=== PATIENT | male | born 1965 | race Caucasian/White ===

== ENCOUNTER 2019-11-05 12:41 | Outpatient (CLI) | payer BC, SELFPAY ==
[2019-11-08 15:54] LABS: COVID-19 RT-PCR UVMMC Result Negative (Negative)
== END 2019-11-05 13:01 ==
PROVIDERS: PCP Physician Assistant; Visit Provider Urology
DX: Z11.59 Encounter for screening for other viral diseases (principal)
CPT/HCPCS: U0003

== ENCOUNTER 2019-11-09 06:13 | Day surgery (SDC) | payer BC, SELFPAY ==
[2019-11-09 06:22] VITALS: BP 108/72; PULSE 90; RESP 16; TEMP 36.9; O2SAT 97
--- NOTE | 2019-11-09 06:49 | W.PM.HP.N ---
Date of service: 11/09/19 Time of Service: 07:00 Assessment and Plan Assessment and plan (1) Bilateral kidney stones: Status: Acute Assessment and plan: We will plan on cystoscopy with bilateral retrograde pyelograms, ureteroscopy and stone manipulation. Depending on the size and location of the stones, we will be prepared to use either the semirigid or flexible ureteroscope. We will have the holmium laser available should we need it. On his last imaging study, his stones were in the upper pole of each kidney. 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 He underwent ureteroscopy for a ureteral stone back in 2016. He has passed a few stones since then. He has been alkalinizing his urine as well. He tells me that about 2 months ago he passed a small stone. He felt well after that, but for the past week or so he has noticed urinary frequency, urgency and voiding small volumes at a time. Yesterday, his urine was quite dark. He has been having some right sided back pain which he thinks may be related to renal colic. He is not having any fevers or chills. He has no nausea or vomiting. He is using Tylenol for pain control at this time. He has not passed any additional stone fragments recently. We had discussed doing imaging studies preoperatively, but since uric acid stones are radio lucent, we elected to move ahead with cystoscopy and retrograde pyelogram. Review of Systems Narrative: No fevers or chills No vision change or dysphasia No diabetes or thyroid No shortness of breath, cough or hemoptysis No chest pain or palpitations. Hx HTN No nausea, vomiting, hepatitis, ulcers, jaundice, diarrhea or constipation No seizures, strokes or peripheral neuropathy No bleeding disorders or anemia No gout. c/o back pain [facility] Medical History (Updated 11/09/19 @ 06:51 by Gwyn Dykes MD) Hypertension Kidney stones Surgical History (Updated 11/09/19 @ 06:22 by Shannan Arriaza) Excision, Skin Mass R arm History of colonoscopy (Chronic) Repair of inguinal hernia pt. reports it was umbilical Ureteroscopy, stone extraction (11/09/15) Social History Smoking/Tobacco Use Status: Current every day Tobacco Type: smokeless tobacco Alcohol Intake: current Alcohol Intake frequency: a few times a week Alcohol type: hard liquor Drug use: Never Substance use type: does not use Details: smokeless tobacco: t-1899. alcohol: t-1, 2 drinks Do you feel safe at home: Yes (Lives alone) Meds Home Medications and Allergies Home Medications Medication Instructions Recorded Confirmed Type lisinopril-hydrochlorothiazide 1 tab-cap PO DAILY tab-cap 11/10/15 11/08/19 History sodium citrate-citric acid 490 15 ml PO BID #1000 ml 12/04/18 11/08/19 Rx mg-640 mg/5 mL oral solution tamsulosin 0.4 mg capsule 0.4 mg PO DAILY #14 cap 11/05/19 11/08/19 Rx Allergies Allergy/AdvReac Type Severity Reaction Status Date / Time No Known Allergies Allergy Unverified 11/09/19 06:20 Exam Const General: cooperative and no acute distress Neck Neck: supple Resp Effort & Inspection: normal respiratory effort Auscultation: clear to auscultation bilaterally Cardio Rate: regular rate Rhythm: regular rhythm GI Palpation: soft and no masses Neuro General: patient alert, patient awake and patient oriented x3 Results Last Vital Signs Temp 36.9 C 11/09/19 06:22 Pulse 90 11/09/19 06:22 Resp 16 11/09/19 06:22 BP 108/72 11/09/19 06:22 Pulse Ox 97 11/09/19 06:22 COVID-19 Screening Traveled to [place] from one of the affected countries or regions?: NO
[2019-11-09] MEDS: Lactated Ringers 1,000 ML 80 ML IV (07:03)
[2019-11-09] MEDS: ceFAZolin 2 GM/50 ML BAG IVPB (07:30)
[2019-11-09] MEDS: Lidocaine 2% Jelly 6 ML SYR (07:43)
[2019-11-09] MEDS: Omnipaque 300 MG/ML 50 ML BTL (07:54)
--- NOTE | 2019-11-09 08:15 | W.PM.DSUDISC ---
Discharge Plan Disposition Patient Disposition: HOME Condition: Stable Discharge Details Reason For Visit: BILAT KIDNEY STONE Attending Provider: Gwyn Dykes Primary Care Provider: Johan Giordano Home Meds and New Rx's Prescriptions: New tramadol 50 mg tablet 50 mg PO Q6H PRN (Reason: pain) Qty: 20 RF: 0 No Action Oracit 490-640 mg/5 mL solution 15 ml PO BID Qty: 1000 RF: 6 tamsulosin 0.4 mg capsule 0.4 mg PO DAILY Qty: 14 RF: 0 lisinopril-hydrochlorothiazide 1 EACH tablet 1 tab-cap PO DAILY RF: 0 Discharge Instructions Additional Instructions: F/U Friday for stent removal - tell my office pt has string on stent F/U 6 weeks with renal US no need to strain urine Activity:: may return to work with no restrictions on 11/15/2019 Shower/Bathe:: 24 hours Diet:: As Tolerated Discharge Orders Discharge Orders: Discharge Order (Routine); Ordered 11/09/19 Ordered By: Gwyn Dykes DS: Diagnosis Discharge Diagnosis (1) Bilateral kidney stones: Status: Acute
--- NOTE | 2019-11-09 08:26 | DI.RAD_ITS ---
EXAM: XR RETROGRADE IN OR INDICATION: BILATERAL KIDNEY STONES. COMPARISON: No exams were available for comparison TECHNIQUE: 2D digital imaging was performed. FINDINGS: C-arm fluoroscopy was utilized by Dr. Dykes during retrograde ureterography. Please see Dr. Dykes's p rocedure note. Fluoro time was 55.5 seconds. DATA REPOSITORY: RADIATION DOSE DELIVERED:
--- NOTE | 2019-11-09 08:30 | W.PM.OP ---
Date of service: 11/09/19 Time of Service: 08:30 Operative Note Operative Note DATE OF PROCEDURE: 11/09/19 PRE-OP DIAGNOSIS: Bilateral kidney stones POST-OP DIAGNOSIS: same PROCEDURE: Cystoscopy, bilateral retrograde pyelograms, bilateral flexible ureteroscopy, insert right ureteral stent SURGEON: Gwyn Dykes ANESTHESIA: other (General) ESTIMATED BLOOD LOSS: 0 PATHOLOGY: none sent COMPLICATIONS: None Patient was transported to: same day Patient's condition: stable Indications: This is a 54-year-old gentleman with a history of uric acid stones bilaterally. He has required ureteroscopy in the past. He has also passed multiple stones on his own. He is currently being treated with alkalinization of his urine. He presented with bilateral flank pain, frequency and urgency. His urinalysis showed blood but no sign of infection. He presents for cystoscopy with retrograde pyelogram and possible stone manipulation. Findings: Multiple small nonobstructing stones that were irrigated free from the ureters and bladder. A few small was which had yet moved into the collecting system (bilaterally) Procedure Description: The patient was brought to the operating room on 11/09/2019. After successful induction of general anesthesia, he was placed in the dorsal lithotomy position. He was given a dose of preoperative antibiotics. His genitalia was prepped and draped. 2% Xylocaine jelly was instilled into the urethra to act as a local anesthetic. A 22 [place] rigid cystoscope was passed through the urethra into the bladder. The urethra and bladder were inspected with a 30 degree lens. The pendulous bulbous membranous urethra was appeared normal with no strictures. The prostatic urethra showed no significant enlargement and no prominent median lobe. The bladder neck was entered the bladder mucosa was inspected. A few small yellowish stones were seen adherent to the bladder mucosa. None of these stones measured more than 1 to 2 mm. Each ureteral orifice was identified. We began on the right side and passed a 6 [place] access catheter through the scope and maneuvered the tip of the catheter into the orifice. Retrograde film was obtained by injecting Omnipaque through the access catheter under fluoroscopic guidance. I did not identify any filling defects within the ureter. We elected to pass a flexible ureteroscope up to the kidney to look for any significant stone burden in the upper tracts. I passed a guidewire through the access catheter and remove the catheter. We passed the dual-lumen catheter over the wire and positioned a second wire. We chose 1 of the wires as a working wire and the other is a safety wire. I then passed the ureteral access sheath over the working wire. We left the safety wire in place. We passed the flexible ureteroscope through the access sheath up to the kidney. We inspected each of the calyces. We did not see any large burden free-floating stones. There were a few small stones that had not yet broken through the mucosa to enter the collecting system. We withdrew the access sheath and inspected the ureter as we pulled the ureteroscope out. There were a few abraded areas of mucosa in the ureter, so we elected to place a ureteral stent. We chose a 4.8 [place] variable length stent and advanced it over the safety wire. The proximal end of the stent was curled in the upper pole calyx and the distal end was curled in the bladder. Safety string was left in place and brought through the urethra. The string was anchored to the dorsum of the penis using a Steri-Strip. We then performed a similar procedure on the left side. We again cannulated the ureteral orifice with a 6 [place] access catheter. We injected Omnipaque and again found no filling defects along the ureter. We passed a guidewire through the access catheter and removed the catheter. We then passed the dual-lumen catheter over the wire and positioned a second wire. We chose 1 of the wires as a working wire and the other is a safety wire. On the left side, we decided not to use the access sheath in an effort to minimize trauma to the ureter. I passed the flexible ureteroscope over the working wire and removed the wire once we advanced to the renal pelvis. Each of the calyces was inspected. Again no large stone burden was identified but a few small stones that had not yet broken through to the collecting system were identified. We inspected the ureter as we withdrew the scope and this time no ureteral abrasions were identified. For that reason, we did not place a stent on the left side. We irrigated all of the small stone debris out of the bladder. All scopes were then removed He tolerated this procedure well with no complications. There was no appreciable blood loss.
[2019-11-09 08:55] VITALS: BP 105/75; PULSE 72; RESP 18; TEMP 36.2; O2SAT 97
[2019-11-09] MEDS: Phenazopyridine 200 MG TAB PO (09:01)
[2019-11-09] MEDS: traMADol 50 MG TAB PO (09:01)
== END 2019-11-09 09:40 | disposition home or self-care (01) ==
PROVIDERS: PCP Physician Assistant; Visit Provider Urology
PROC: (CPT 52332; principal; 2019-11-09 07:30)
DX: N20.0 Calculus of kidney (principal); Z87.442 Personal history of urinary calculi
CPT/HCPCS: 52332; 52351; NC; 74420; J0690; J1100; J1885; J2001; J2405; Q9967

== ENCOUNTER 2019-11-15 15:12 | Outpatient (REF) | payer BC, SELFPAY ==
[2019-11-15 15:48] LABS: Abs Immature Grans 0.03 k/cumm (0.0-0.09); Absolute Basophil Count 0.02 k/cumm (0.0-0.2); Absolute Eosinophil Count 0.32 k/cumm (0.0-0.7); Absolute Lymphocyte Count 1.29 k/cumm (1.2-3.4); Absolute Monocyte Count 0.71 k/cumm (0.11-0.7); Absolute Neutrophil Count 3.34 k/cumm (1.2-6.7); Basophils % 0.4; Eosinophils % 5.6; HCT 43.7 % (40.0-50.0); HGB 15.1 g/dL (13.5-17.5); Immature Grans % 0.5 %; Lymphocytes % 22.6; Mean Corp. HGB Concentration 34.6 g/dL (32.0-36.0); Mean Corpuscular Hemoglobin 29.4 pg (27.0-33.0); Mean Platelet Volume 9.5 fL (8.0-11.0); Monocytes % 12.4; Neutrophils % 58.5; Platelet Count 415 x1000/uL (130-400); RBC 5.14 m/cumm (4.50-6.00); RBC Distribution Width 12.1 % (11.8-14.1); White Blood Cell Count 5.71 k/cumm (4.4-10.8)
[2019-11-15 16:06] LABS: ALT 68 U/L (16-63); AST 31 U/L (15-37); Albumin 3.3 g/dL (3.4-5.0); Alkaline Phosphatase 78 U/L (46-116); Anion Gap 8.8 mmol/L (3-11); BUN 30 mg/dL (7-18); Bilirubin, Total 0.4 mg/dL (0.2-1.0); CO2 27.2 mmol/L (21.0-32.0); CREATININE 1.52 mg/dL (0.70-1.30); Calcium 9.4 mg/dL (8.5-10.1); Chloride 98 mmol/L (98-107); Estimated GFR 47.85 (mL/min/1.73m2); Glucose 110 mg/dL (74-106); Magnesium 2.2 mg/dL (1.8-2.4); Potassium 4.4 mmol/L (3.5-5.1); Sodium 134 mmol/L (136-145); TSH 0.73 uIU/mL (0.36-3.74); Total Protein 7.6 g/dL (6.4-8.2)
== END 2019-11-15 15:32 ==
LOC: LBN 15:12
PROVIDERS: PCP Physician Assistant; Visit Provider Urology
DX: R00.0 Tachycardia, unspecified (principal); R42 Dizziness and giddiness; R61 Generalized hyperhidrosis
CPT/HCPCS: 80053; 83735; 84443; 85025

== ENCOUNTER 2019-12-28 01:34 | Outpatient (CLI) | payer BC, SELFPAY ==
--- NOTE | 2019-12-28 07:45 | DI.US_ITS ---
EXAM: US RENAL CLINICAL HISTORY: r/o hydronephrosis after ureteroscopy, barbara kidney stones, N20.0. TECHNIQUE: Bartholomew scale, color and spectral Doppler were used. COMPARISON: No exams were available for comparison FINDINGS: Renal size in cm: Right: 12.1 left: 13.2 Echogenicity: Normal. Hydronephrosis: No. Cyst or mass: No. Nephrolithiasis: 2 echogenic shadowing foci are seen in the left kidney. The largest is in the midpo le and measures 0.5 cm. Other findings: None. Bladder:Normal. Ureteral jets: Right: Not visualized on this examination. Left: Not visualized on this examination. Prevoid vol:167 cc Postvoid vol:2 cc Prostate: Not visualized well on this examination cc IMPRESSION: Left nephrolithiasis. No evidence of hydronephrosis. DATA REPOSITORY:
== END 2019-12-28 01:54 ==
PROVIDERS: Visit Provider Urology
DX: N20.0 Calculus of kidney (principal)
CPT/HCPCS: 76770

== ENCOUNTER 2020-07-14 04:33 | Outpatient (CLI) | payer BC, SELFPAY ==
--- NOTE | 2020-07-14 07:45 | DI.US_ITS ---
EXAM: US RENAL CLINICAL HISTORY: monitor known stones,CALCULUS OF BOTH KIDNEYS TECHNIQUE: Ultrasound of both kidneys performed using standard protocol. COMPARISON: US US RENAL from 12/28/2019 FINDINGS: RIGHT KIDNEY: Measures 11.8 cm in length. No cysts evident. Normal cortical thickness and corticomedullary differen tiation .No solid masses No intrarenal calculi nor hydronephrosis. LEFT KIDNEY: Measures 12 cm in length. No cysts evident. Normal cortical thickness and corticomedullary different iaion. No solids masses. There is an 8 millimeter echogenic focus mid aspect left kidney which may b e a nonobstructive calculus despite absence of shadowing. No hydronephrosis. URINARY BLADDER: Prevoid volume is 62 cc Postvoid volume is 7 cc No evidence of bladder mass nor diverticuli. Ureterovesical jets: The right ureterovesical jet was identified. The left was not IMPRESSION: 1. No significant ultrasound findings in the right kidney. 2. 8 millimeter probable nonobstructive calculus at the midpole level of the left kidney. 3. No obvious abnormality in the urinary bladder. DATA REPOSITORY:
== END 2020-07-14 04:53 ==
PROVIDERS: PCP Nurse Practitioner Family; Visit Provider Urology
DX: N20.0 Calculus of kidney (principal)
CPT/HCPCS: 76770

== ENCOUNTER 2021-09-12 18:43 | Outpatient (REF) | payer BC, SELFPAY ==
[2021-09-12 18:05] LABS: Anion Gap 9.8 mmol/L (3-11); BUN 24 mg/dL (7-18); CO2 22.2 mmol/L (21.0-32.0); CREATININE 1.1 mg/dL (0.70-1.30); Calcium 9.5 mg/dL (8.5-10.1); Chloride 104 mmol/L (98-107); Glucose 117 mg/dL (74-106); Potassium 5.1 mmol/L (3.5-5.1); Sodium 136 mmol/L (136-145)
== END 2021-09-12 18:44 | disposition home or self-care (01) ==
LOC: LBN 18:43
PROVIDERS: PCP Nurse Practitioner Family; Visit Provider Nurse Practitioner Gerontology
DX: N20.0 Calculus of kidney (principal)
CPT/HCPCS: 80048

== ENCOUNTER 2021-12-17 15:02 | Outpatient (REF) | payer BC, SELFPAY ==
[2021-12-17 16:58] LABS: Potassium 4.2 mmol/L (3.5-5.1)
== END 2021-12-17 15:03 | disposition home or self-care (01) ==
LOC: LBN 15:02
PROVIDERS: PCP Registered Nurse; Visit Provider Nurse Practitioner Gerontology
DX: N20.0 Calculus of kidney (principal)
CPT/HCPCS: 84132

== ENCOUNTER 2023-03-19 16:30 | Outpatient (REF) | payer BC, SELFPAY ==
[2023-03-19 19:23] LABS: Anion Gap 7.5 mmol/L (3-11); BUN 16 mg/dL (7-18); CO2 28.5 mmol/L (21.0-32.0); CREATININE 1.2 mg/dL (0.70-1.30); Calcium 9.4 mg/dL (8.5-10.1); Chloride 102 mmol/L (98-107); Estimated GFR 69.66 (mL/min/1.73m2); Glucose 133 mg/dL (74-106); Potassium 4.3 mmol/L (3.5-5.1); Sodium 138 mmol/L (136-145)
== END 2023-03-19 16:31 | disposition home or self-care (01) ==
LOC: LBN 16:30
PROVIDERS: PCP Registered Nurse; Visit Provider Nurse Practitioner Gerontology
DX: N20.0 Calculus of kidney (principal); N40.1 Benign prostatic hyperplasia with lower urinary tract symptoms; I10 Essential (primary) hypertension
CPT/HCPCS: 80048

== ENCOUNTER 2023-07-02 18:58 | Outpatient (CLI) | payer BC, SELFPAY ==
[2023-07-02 18:29] LABS: PSA, Diagnostic 2.3 ng/mL (<=3.5)
== END 2023-07-02 18:59 | disposition home or self-care (01) ==
LOC: LBO 18:58
PROVIDERS: PCP Registered Nurse; Visit Provider Nurse Practitioner Gerontology
DX: R97.20 Elevated prostate specific antigen [PSA] (principal)
CPT/HCPCS: 36415; 84153

== ENCOUNTER 2023-10-02 06:55 | Day surgery (SDC) | payer BC, SELFPAY ==
[2023-10-02 07:08] VITALS: BP 172/100; PULSE 83; RESP 16; TEMP 36.6; O2SAT 98
== END 2023-10-02 06:56 | disposition home or self-care (01) ==
LOC: SUR 06:55
PROVIDERS: PCP Registered Nurse; Visit Provider Urology
DX: Z53.09 Procedure and treatment not carried out because of other contraindication (principal)

== ENCOUNTER 2023-10-13 07:42 | Day surgery (SDC) | payer BC, SELFPAY ==
[2023-10-13] VITALS (9 sets, daily range): BP systolic 139–176; BP diastolic 87–107; PULSE 67–108; RESP 16–24; TEMP 36.2–36.6; O2SAT 94–99; BMI 43.6
[2023-10-13] MEDS: Lactated Ringers 1,000 ML 80 ML IV (08:49)
--- NOTE | 2023-10-13 10:21 | W.PM.HP.N ---
Date of service: 10/13/23 Time of Service: 10:21 Assessment and Plan Assessment and plan (1) Bilateral kidney stones: Status: Acute Assessment and plan: For cystoscopy with retrograde pyelogram, flexible ureteroscopy and homium laser lithotripsy of renal stone. History of Present Illness History of Present Illness Chief Complaint: Left kidney stones Narrative: This is a 58-year-old gentleman who has a history of uric acid kidney stones. He currently has intermittent left flank pain but no gross hematuria, dysuria, fever or chills. His renal ultrasound shows a 10 mm stone in the left kidney. He presents for stone manipulation. We have been attempting to alkalinize his urine to decrease his stone burden and prevent new stones from forming. He is on sodium bicarb and at at this point in time. Review of Systems Narrative: No fevers or chills No vision change or dysphasia No diabetes or thyroid dysfunction No shortness of breath, cough or hemoptysis No chest pain or palpitations GERD. No hepatitis, ulcers, jaundice, diarrhea or constipation No seizures, strokes or peripheral neuropathy No bleeding disorders or anemia No gout PFSH All Active Problems Elevated PSA (Acute) Bilateral kidney stones (Acute) Medical History Hypertension Kidney stones Surgical History History of colonoscopy Ureteroscopy, stone extraction (11/09/15) Repair of inguinal hernia pt. reports it was umbilical Excision, Skin Mass R arm Social History Smoking/Tobacco Use Status: Current every day Tobacco Type: smokeless tobacco Smoking risk assessment performed?: Yes Alcohol Intake: current Alcohol Intake frequency: 0-2 drinks per day Alcohol type: hard liquor Drug use: Never Substance use type: does not use Housing: house Do you feel safe at home: Yes (Lives alone) Do you feel safe in your relationship?: Yes Meds Allergies and Home Medications Allergies Allergy/AdvReac Type Severity Reaction Status Date / Time No Known Allergies Allergy Verified 10/13/23 08:19 Home Medications Medication Instructions Recorded Confirmed Type lisinopril 40 mg tablet 40 mg PO DAILY 12/17/21 10/13/23 History omeprazole 20 mg capsule,delayed 20 mg PO DAILY 12/17/21 10/13/23 History release atorvastatin 20 mg tablet 20 mg PO DAILY 12/17/22 10/13/23 History gabapentin 100 mg capsule 100 mg PO DAILY 12/17/22 10/13/23 History sodium bicarbonate 650 mg tablet 650 mg PO BID #180 tabs 03/19/23 10/13/23 Rx oxybutynin chloride 5 mg 5 mg PO DAILY #90 tabs 07/21/23 10/13/23 Rx tablet,extended release 24 hr Exam Const General: cooperative Neck Neck: supple Resp Effort & Inspection: normal respiratory effort Auscultation: clear to auscultation bilaterally Cardio Rate: regular rate Rhythm: regular rhythm GI Palpation: soft and no masses Neuro General: patient alert, patient awake and patient oriented x3 Results Last Vital Signs Temp 36.5 C 10/13/23 08:20 Pulse 86 10/13/23 08:20 Resp 20 10/13/23 08:20 BP 141/94 H 10/13/23 08:20 Pulse Ox 98 10/13/23 08:20 Time Spent Time spent with Patient: <40 minutes Time was spent: other
--- NOTE | 2023-10-13 10:56 | W.ANESPRE ---
General Info Date of Service Date Performed: 10/13/23 Height: 5 ft 6 in Weight: 122.7 kg Body Mass Index (BMI): 43.6 Surgical Procedure: Operation Date: 10/13/23 10:25 Proposed Procedure Side Surgeon p Cystoscopy/Laser/Retrograde/Ureteroscopy/Stone Manipulation/? Stent Left Gwyn Dykes MD Pre-Op Diagnosis Post-Op Diagnosis Bilateral kidney stones Bilateral kidney stones Meds Allergies and Home Medications Allergies Allergy/AdvReac Type Severity Reaction Status Date / Time No Known Allergies Allergy Verified 10/13/23 08:19 Home Medication Medication Instructions Recorded lisinopril 40 mg tablet 40 mg PO DAILY 12/17/21 omeprazole 20 mg capsule,delayed 20 mg PO DAILY 12/17/21 release atorvastatin 20 mg tablet 20 mg PO DAILY 12/17/22 gabapentin 100 mg capsule 100 mg PO DAILY 12/17/22 sodium bicarbonate 650 mg tablet 650 mg PO BID #180 tabs 03/19/23 oxybutynin chloride 5 mg 5 mg PO DAILY #90 tabs 07/21/23 tablet,extended release 24 hr Current Visit Medications: Current Medications Generic Name Dose Route Start Last Admin Trade Name Freq PRN Reason Stop Dose Admin Ringer's Solution 1,000 mls @ 80 mls/hr 10/13/23 06:00 10/13/23 08:49 IV 10/13/23 23:59 80 mls/hr INFUSION FREEDOM Administration Cefazolin Sodium/Dextrose 2 gm in 50 mls @ 100 mls/hr 10/13/23 06:00 Ancef Duplex IVPB 10/13/23 23:59 PREOP FREEDOM IV Miscellaneous Supplies 1 each 10/13/23 06:00 Iv Access IV 10/13/23 23:59 DIRECTED FREEDOM Sodium Chloride 0 ml 10/13/23 06:00 Normal Saline Flush 10 Ml Syr IV 10/13/23 23:59 PRN PRN Sodium Chloride 0 ml 10/13/23 06:00 Normal Saline 10 Ml Vial IJ 10/13/23 23:59 DIRECTED PRN Sterile Water 0 ml 10/13/23 06:00 Water,Injection,Sterile 10 Ml Vial IJ 10/13/23 23:59 DIRECTED PRN PFSH Active Problems Active Problems: Problem Status Onset Code Elevated PSA R97.20 Bilateral kidney stones N20.0 Medical History Medical History Hypertension Kidney stones Surgical History Surgical History History of colonoscopy Ureteroscopy, stone extraction (11/09/15) Repair of inguinal hernia pt. reports it was umbilical Excision, Skin Mass R arm Tobacco Smoking/Tobacco Use Status: Current every day Tobacco Type: smokeless tobacco Alcohol Alcohol Intake: current Alcohol intake frequency: 0-2 drinks per day Alcohol type: hard liquor Substance Use Substance use: Never Substance use type: does not use Vital Signs and Lab Results Vital Signs Most Recent Vital Signs in EMR: Most Recent Vital Signs Temp Pulse Resp BP Pulse Ox 36.5 C 86 20 141/94 H 98 10/13/23 08:20 10/13/23 08:20 10/13/23 08:20 10/13/23 08:20 10/13/23 08:20 Lab Results Blood Type / Crossmatch: No Data to Display Complete Blood Count: No Data to Display Complete Metabolic Panel: No Data to Display Liver Function Panel: No Data to Display Coagulation Panel: No Data to Display Cardiac Panel: No Data to Display Arterial Blood Gas: No Data to Display Venous Blood Gas: No Data to Display Pancreas Panel: No Data to Display Thyroid Panel: No Data to Display Infectious Disease: No Data to Display Blood Cultures: No Data to Display Toxicology Panel: No Data to Display Anesthesia Assessment and Plan Anesthesia History Personal History: No History of Anesthesia Complications Family History: No Family History of Anesthesia Complications Exercise Tolerance Exercise Tolerance: Metabolic Equivalents>4 Pertinent Negatives Pertinent Negatives: No Symptoms of GERD Cardiac & Pulmonary Exam Cardiac Exam: Normal S1/S2 Heart Sounds Pulmonary Exam: Clear Bilateral Breath Sounds Implantable Cardiac Device Does patient have a Pacemaker or an ICD?: No Airway Exam Known Difficult Airway: No Mallampati Class: 2 Mouth Opening: Normal (> 3cm) Thyromental Distance: Less than 3 cm Facial Hair: Full [place] Neck Range of Motion: Full ROM Neck Circumference: Thick Teeth Condition: Normal Dentition and Other (Chipped teeth, 11 & 21) ASA Classification ASA Score: ASA 2 Emergency Case?: No NPO Status NPO Status: NPO Clears >2 hours, Solids >8 hours Anesthesia Plan Resuscitation Status: Full Code Anesthesia Technique: General Anesthesia Airway Planned: Endotracheal Tube Monitors Used: Standard Monitors
[2023-10-13] MEDS: ceFAZolin 2 GM/50 ML BAG IVPB (11:11)
[2023-10-13] MEDS: Lidocaine 2% Jelly 6 ML SYR (11:32)
[2023-10-13] MEDS: Omnipaque 300 MG/ML 50 ML BTL (11:48)
--- NOTE | 2023-10-13 11:59 | W.PM.DSUDISC ---
Date of service: 10/13/23 Time of Service: 12:00 Discharge Plan Disposition Patient Disposition: Home Discharge Details Reason For Visit: ureteroscopy Attending Provider: Gwyn Dykes Primary Care Provider: PRIMITIVO [facility]U Home Meds and New Rx's Prescriptions: No Action omeprazole 20 mg capsule,delayed release(DR/EC) 20 mg PO DAILY lisinopril 40 mg tablet 40 mg PO DAILY gabapentin 100 mg capsule 100 mg PO DAILY atorvastatin 20 mg tablet 20 mg PO DAILY sodium bicarbonate 650 mg tablet 650 mg PO BID Qty: 180 3RF oxybutynin chloride 5 mg tablet extended release 24hr 5 mg PO DAILY Qty: 90 3RF Rx Instructions: note change in med. Extended release now - take 1 daily Discharge Instructions Additional Instructions: no need to strain urine followup 3 to 7 days for stent removal (has string on end of stent) followup appt 6 to 8 weeks with renal Ultrasound while the stent is in place, it is not unuasual to have blood in the urine, discomfort when you urinate and you may urinate more frequently Discharge Orders Discharge Orders: Discharge Order (Routine); Ordered 10/13/23 Ordered By: Gwyn Dykes DS: Diagnosis Discharge Diagnosis (1) Bilateral kidney stones: Status: Acute
--- NOTE | 2023-10-13 12:00 | DI.RAD_ITS ---
Exam(s) XR RETROGRADE IN OR EXAM: XR RETROGRADE IN OR CLINICAL HISTORY: BILATERAL KIDNEY STONES TECHNIQUE: 2D and realtime digital imaging was performed. CONTRAST MATERIAL: Refer to procedure report. COMPARISON: US US RENAL from 09/12/2023 FINDINGS: Fluoroscopy was provided for Dr. Dykes during the performance of a retrograde evaluation of the harshad l collecting system. Please refer to the procedure report for complete details. Ka,r=24.9 mGy IMPRESSION: RADIATION DOSE DELIVERED: 0.0 [id number] 0
--- NOTE | 2023-10-13 12:23 | W.PM.OP ---
Date of service: 10/13/23 Time of Service: 12:23 Operative Note Operative Note DATE OF PROCEDURE: 10/13/23 PRE-OP DIAGNOSIS: Left kidney stone POST-OP DIAGNOSIS: same PROCEDURE: cystoscopy, left retrograde pyelogram, left flexible ureteroscopy, stone extraction, insert left ureteral stent SURGEON: Gwyn Dykes ANESTHESIA TYPE: Local By Surgeon and General LMA/ETT Refer to Anesthesia Record ESTIMATED BLOOD LOSS: 5 PATHOLOGY: other (stone for chemical analysis) COMPLICATIONS: None Patient was transported to: PACU Patient's condition: stable Implants: 4.8 [place] by 22 to 30 cm left ureteral stent Indications: This is a 58-year-old gentleman who has a history of uric acid kidney stones. We have been monitoring him with ultrasound. He has been having left flank pain. On ultrasound, he had no hydronephrosis but there did appear to be significant stone burden in the left lower pole. He presents for ureteroscopy and stone manipulation. Findings: multiple stones within left midpole calyx Procedure Description: The patient was given preoperative IV antibiotics. He was brought to the operating room on 10/13/2023. After successful induction of general anesthesia, he was placed in the dorsal lithotomy position. His genitalia was prepped and draped. 2% Xylocaine jelly was instilled into the urethra to act as a local anesthetic. A 22 [place] rigid cystoscope was passed through the urethra into the bladder. The urethra and bladder were inspected with 30 degree lens. The pendulous, bulbar and membranous urethra appeared normal with no strictures. The prostatic urethra showed an elevated bladder neck. The bladder neck was entered and the bladder mucosa was inspected. Both ureteral orifices appeared normal with no blood coming from either side. The remainder of the bladder showed no papillary or nodular lesions. We cannulated the left ureteral orifice with a 5 [place] access catheter. A retrograde pyelogram was obtained by injecting Omnipaque through the access catheter under fluoroscopic guidance. Using the retrograde pyelogram, we were able to outline each of the calyces. We then passed a guidewire through the lumen of the access catheter and remove the catheter. We passed a dual-lumen catheter over the wire and positioned a second wire. We chose one of the wires as a working wire and the other as a safety wire. We removed the dual-lumen catheter and passed a ureteral access sheath over the working wire. We then passed the flexible ureteroscope up through the lumen of the access sheath. Each of the calyces was inspected. What I started at the lower pole and found no stones within the lower pole calyces. In the midpole calyx, there was not one single large stone, but multiple smaller stones. I was able to grasp the largest of the stone fragments and a 0 tip stone basket and remove the stone in its entirety. The remainder of the smaller stones were flushed out of the calyx into the ureter. The upper pole calyx showed no stones present. We then withdrew the ureteroscope and access sheath down the ureter. No large stone burden was visualized in the ureter. We passed a 4.8 [place] variable length stent over the safety wire. We position the stent with the proximal end curled in the renal pelvis and the distal and curled within the bladder. We left the safety string in place and brought the string through the urethra. We taped the end of the string onto the dorsum of the penis. The positioning of the stent was confirmed both fluoroscopically and cystoscopically.
[2023-10-13] MEDS: Phenazopyridine 200 MG TAB PO (13:24)
--- NOTE | 2023-10-13 13:28 | W.ANESPOSTOP ---
Postoperative Evaluation Date, Time and Location Date Performed: 10/13/23 Time Performed: 13:29 Patient Location: Day Surgery Unit Vital Signs Most Recent Imported Vital Signs: Most Recent Vital Signs Temp Pulse Resp BP Pulse Ox 36.5 C 86 18 139/87 95 10/13/23 13:09 10/13/23 13:09 10/13/23 13:09 10/13/23 13:09 10/13/23 13:09 Pain Score Most Recent Pain Score: Most Recent Pain Score Pain Level 0 10/13/23 13:09 Assessment Mental Status: Awake (Alert & Oriented to Patient Baseline) Airway and Respiratory Function: Abnormal Respiratory exam (See explanation) (See below) Cardiovascular Function: Hemodynamically Stable Hydration Status: Adequately Hydrated Nausea & Vomiting: No Nausea or Vomiting Pain: Pt. Denies Any Pain Peripheral Nerve Block: Patient did not receive a nerve block Postoperative Comments:: Difficulty weaning to extubation, poor compliance, de-sat's (? low FRC). Multiple recruitment measures. Extubated with elevated C02. Returned to baseline in PACU. Question primary lung disease? Kylie Urbina [employer]
[2023-10-17 15:09] LABS: Source: Kidney
== END 2023-10-13 13:58 | disposition home or self-care (01) ==
PROVIDERS: PCP Registered Nurse; Visit Provider Urology
PROC: (CPT 52352; principal; 2023-10-13 10:15)
DX: N20.0 Calculus of kidney (principal)
CPT/HCPCS: 52352; 52332; 74420; 82365; J0690; J1100; J1885; J2001; J2250; J2371; J2405; J2704; J3010; Q9967

== ENCOUNTER 2024-01-28 05:54 | Day surgery (SDC) | payer BC, SELFPAY ==
--- NOTE | 2024-01-27 14:28 | HPE_ITS ---
Assessment and Plan Assessment and plan (1) Groin pain, chronic, left: Status: Acute Assessment and plan: Emerson and I reviewed the plan for surgery today, as well as the risks and benefits associated with this. He had another opportunity to ask any other questions that he might have, and I think he has a good understanding of the nature of the operation, and what to expect after surgery. History of Present Illness History of Present Illness Chief Complaint: Left-sided chronic pain after inguinal hernia repair Narrative: Hugo is 58 years old, and he underwent open repair of a left inguinal hernia in February 2022. He has been suffering from chronic stabbing pain that radiates down towards his left testicle ever since surgery. He has been treated with ultrasound-guided injections with no relief of this pain. Has been seen by consultation by multiple chronic pain specialist, and basically exhausted nonope rative management. He is interested in elective redo hernia repair on the left side, with attempted neurectomy. PFSH All Active Problems Groin pain, chronic, left (Acute) Chronic pain (Chronic) Elevated PSA (Acute) Bilateral kidney stones (Acute) Medical History Prediabetes Nodule of left lung Nicotine dependence Hyperlipidemia Abdominal pain Hypertension Kidney stones Surgical History Hx of umbilical hernia repair History of cystoscopy History of colonoscopy Ureteroscopy, stone extraction (11/09/15) Repair of inguinal hernia pt. reports it was umbilical Excision, Skin Mass R arm Family History (Updated 11/25/23 @ 15:51 by Med Putnam RN) Father Diabetes Disorder of kidney Heart disease Mother Crohn's disease Dementia Brother Diabetes Hypertension Social History (Updated 11/25/23 @ 15:48 by Med Putnam RN) Smoking/Tobacco Use Status: Current every day Tobacco Type: smokeless tobacco Smoking risk assessment performed?: Yes Alcohol Intake: current Alcohol Intake frequency: 0-2 drinks per day Alcohol type: hard liquor Drug use: Never Substance use type: does not use Details: alcohol: t-1, 2 drinks Housing: house Do you feel safe at home: Yes (Lives alone) Do you feel safe in your relationship?: Yes Meds Allergies and Home Medications Allergies Allergy/AdvReac Type Severity Reaction Status Date / Time No Known Allergies Allergy Verified 01/28/24 06:18 Home Medications ?Medication ?Instructions ?Recorded ?Confirmed ?Type lisinopril 40 mg tablet 40 mg PO DAILY 12/17/21 01/28/24 History omeprazole 20 mg capsule,delayed 20 mg PO DAILY 12/17/21 01/28/24 History release atorvastatin 20 mg tablet 20 mg PO DAILY 12/17/22 01/28/24 History gabapentin 100 mg capsule 100 mg PO DAILY 12/17/22 01/28/24 History sodium bicarbonate 650 mg tablet 650 mg PO BID #180 tabs 03/19/23 01/28/24 Rx tamsulosin 0.4 mg capsule 0.4 mg PO DAILY 12/02/23 01/28/24 History Exam Const General: cooperative and not in acute distress Neck Neck: normal visual inspection, no lymphadenopathy and supple Thyroid: thyroid normal Resp Effort & Inspection: normal respiratory effort Auscultation: clear to auscultation bilaterally Cardio Jugular venous pressure: no JVD Rate: regular rate Rhythm: regular rhythm Heart Sounds: S1 normal and S2 normal GI Inspection: normal to inspection Palpation: soft, no guarding, no hernias and nontender Percussion: normal to percussion Auscultation: normal bowel sounds Other: Tenderness mostly along the left inguinal area, extending slightly laterally, and a bit medially down towards the scrotum Neuro General: patient alert, patient awake and patient oriented x3 Psych Appearance: grossly normal
--- NOTE | 2024-01-27 14:36 | ROE_ITS ---
Date of service: 01/28/24 Time of Service: 10:28 Operative Note Operative Note DATE OF PROCEDURE: 01/28/24 PRE-OP DIAGNOSIS: Chronic postoperative left groin pain POST-OP DIAGNOSIS: same PROCEDURE: Exploration of left inguinal canal with removal of previous mesh, ilioinguinal neurectomy, and primary fascial closure over new mesh SURGEON: Jp Hu [employer] REPAIRER: Adela Mayo ANESTHESIA TYPE: Local By Surgeon, General LMA/ETT and Other (Ultrasound-guided left-sided inguinal tap block) Refer to Anesthesia Record ESTIMATED BLOOD LOSS: 25 PATHOLOGY: other (Surgical mesh; ilioinguinal nerve) COMPLICATIONS: None Patient was transported to: PACU Patient's condition: stable Implants: Bard polypropylene mesh Indications: Hugo is a 58-year-old male with chronic left inguinal pain after open left inguinal herniorrhaphy with mesh in 2021. He is exhausted nonoperative rashid gement and desires explantation of his previous mesh and attempted neurectomy Findings: Dense scar tissue all through the ilioinguinal canal; no obvious inguinal hernia recurrence Procedure Description: I began by confirming the correct site with the patient in the day surgery unit. We mapped out various areas of pain that he has been experiencing, which mostly focused around the inguinal incision site. By anatomic landmarks, this seems most consistent with ilioinguinal distribution, or iliohypogastric distribution. We reviewed the nature of the operation, and the potential risks, which include ongoing chronic pain. Explained that explantation of the mesh can be quite complicated, and does increase the risk of future hernias. We also reviewed the risks of new mesh infection, and other routine complications of inguinal surgery. He was able to provide informed consent. We then moved to the operating room, and after the induction of anesthesia, the anesthesia team provided an ultrasound-guided left-sided inguinal tap block. The left groin was then prepped and draped in the usual fashion. I began with an incision over the left inguinal region. Using anatomic landmarks, this landed the incision slightly cephalad to his previous surgical scar. I dissected down onto the inguinal canal, dividing a significant amount of superficial scar tissue before reaching the external oblique fascia. This was skeletonized down towards the external ring, which was also involved in a significant amount of scar tissue. The inguinal canal was sharply opened laterally, and this was extended down to the area of the external ring. As the external fascia was opened, the lateral aspect of the mesh was easily identified, and dissected free from the surrounding internal oblique muscle. It was elevated off the muscle, and this was extended medially. I carried this dissection along the upper side along the conjoined tendon down towards the medial fixation site. The scar tissue here was extremely dense, and it was quite difficult to identify the proper cord structures. The lateral aspects of the mesh which had previously been wrapped around the cord as described in a keyhole fashion by the previous operative report were divided, and this was around some superficial tissue. The scar tissue almost gave the appearance that the mesh was superficial to the cord structures, but I suppose it is also possible that the keyhole was quite medial and there was only a small portion of superficial cord. The dissection was completed around the medial aspect, and down along the shelving edge of the inguinal ligament. It is worth mentioning that the inguinal ligament was quite attenuated, and some of the lower edge as it flared out creating the opened anterior wall felt like it had been under a little bit of tension. It seems like adhesions were contributing to this. Once the mesh was completely excised, it was passed off the field and provided as a specimen to demonstrate excision. I turned my attention back to the soft tissue in an effort to identify the 3 major inguinal nerves the genitofemoral branches were completely obliterated and scar tissue and impossible to identify. I was able to find some nerve tissue along what I believe was the spermatic cord. It did respond to electrocautery providing some muscle stimulation. I divided this as close to the area of what I believed to be the internal ring as possible. A small segment was removed and sent off as a specimen. The nerve was divided between 3-0 Vicryl suture, and the ends were then buried in the surrounding musculature. Around that time, I did examine the internal ring structures. The previous operative note described that this was closed over a mesh plug. The tissue here. Healthy, and it seems well away from any distribution of significant nerve that may be causing pain. Therefore, this was all left in situ. I dissected out the lateral aspect of the external oblique from the underlying oblique in an effort to identify some of the iliohypogastric nerve. Again, there was quite a bit of scar tissue here, probably from the previous mesh tails. I was not able to find any proper nerve structure to divide. I then turned my attention back to the reconstruction of the canal. The previous operative report described closure of the posterior wall with suture prior to implantation of the mesh. There was no evidence of any hernia recurrence here, and the tissue was quite dense, and I believe any likelihood of recurrence is extremely low. In light of the fact that the cord structures were nearly impossible to identify, I felt the complete dissection of the posterior wall of the inguinal canal in an effort to lay a mesh here would be futile, and perhaps increase the risk of the operation and complications associated with surgery significantly. Therefore, I felt primary closure of the external bleak was probably the best option. Given the fact that there was some attenuation of the tissue, I did elect to implant a small portion of mesh here. A polypropylene mesh was cut to fit under the fascia, and gently laid on the tissue. Again, great care was taken to ensure that it was well away from any significant nerves that may be contributing to postoperative pain. The external bleak fascia was then closed with a running Prolene suture. The skin and soft tissues were irrigated. The soft tissues were closed with interrupted absorbable suture prior to closure of the skin with a running absorbable skin stitch. Band-Aids were applied, the patient was extubated and transferred to the recovery unit.
[2024-01-28] VITALS (36 sets, daily range): BP systolic 110–134; BP diastolic 61–88; PULSE 49–94; RESP 11–22; TEMP 36.2–36.6; O2SAT 93–98; BMI 41.6
[2024-01-28] MEDS: Celecoxib 200 MG CAP PO (06:35)
[2024-01-28] MEDS: Acetaminophen 500 MG TAB 1000 MG PO (06:35)
[2024-01-28] MEDS: Gabapentin 300 MG CAP 600 MG PO (06:36)
[2024-01-28] MEDS: Lactated Ringers 1,000 ML 80 ML IV ×2 (07:00→11:15)
--- NOTE | 2024-01-28 07:12 | W.ANESPRE ---
General Info Date of Service Date Performed: 01/28/24 Height: 5 ft 6 in Weight: 117 kg Body Mass Index (BMI): 41.6 Surgical Procedure: Operation Date: 01/28/24 07:40 Proposed Procedure Side Surgeon p Re-Do Herniorrhaphy Inguinal w/Mesh, Triple Neurectomy Left Jp Hu MD Meds Allergies and Home Medications Allergies Allergy/AdvReac Type Severity Reaction Status Date / Time No Known Allergies Allergy Verified 01/28/24 06:18 Home Medication ?Medication ?Instructions ?Recorded lisinopril 40 mg tablet 40 mg PO DAILY 12/17/21 omeprazole 20 mg capsule,delayed 20 mg PO DAILY 12/17/21 release atorvastatin 20 mg tablet 20 mg PO DAILY 12/17/22 gabapentin 100 mg capsule 100 mg PO DAILY 12/17/22 sodium bicarbonate 650 mg tablet 650 mg PO BID #180 tabs 03/19/23 tamsulosin 0.4 mg capsule 0.4 mg PO DAILY 12/02/23 Current Visit Medications: Current Medications Generic Name Dose Route Start Last Admin Trade Name Arturoq PRN Reason Stop Dose Admin Acetaminophen 1,000 mg 01/28/24 06:00 01/28/24 06:35 Acetaminophen 500 Mg Tab PO 01/28/24 23:59 1,000 mg PREOP FREEDOM Administration Celecoxib 200 mg 01/28/24 06:00 01/28/24 06:35 Celecoxib 200 Mg Cap PO 01/28/24 23:59 200 mg PREOP FREEDOM Administration Gabapentin 600 mg 01/28/24 06:00 01/28/24 06:36 Gabapentin 300 Mg Cap PO 01/28/24 23:59 600 mg PREOP FREEDOM Administration Hydromorphone HCl 0.2 mg 01/27/24 14:36 Hydromorphone 2 Mg/Ml Syr IVP 02/26/24 14:35 Q1H PRN PRN Ringer's Solution 1,000 mls @ 80 mls/hr 01/28/24 06:00 01/28/24 07:00 IV 01/28/24 23:59 80 mls/hr INFUSION FREEDOM Administration Cefazolin Sodium/Dextrose 2 gm in 50 mls @ 100 mls/hr 01/28/24 06:00 Ancef Duplex IVPB 01/28/24 23:59 PREOP FREEDOM IV Miscellaneous Supplies 1 each 01/28/24 06:00 Iv Access IV 01/28/24 23:59 DIRECTED FREEDOM Sodium Chloride 0 ml 01/28/24 06:00 Normal Saline Flush 10 Ml Syr IV 01/28/24 23:59 PRN PRN Sodium Chloride 0 ml 01/28/24 06:00 Normal Saline 10 Ml Vial IJ 01/28/24 23:59 DIRECTED PRN Sterile Water 0 ml 01/28/24 06:00 Water,Injection,Sterile 10 Ml Vial IJ 01/28/24 23:59 DIRECTED PRN Tramadol HCl 50 mg 01/27/24 14:36 Tramadol 50 Mg Tab PO 02/26/24 14:35 Q6H PRN PRN Pain PFSH Active Problems Active Problems: Problem Status Onset Code Groin pain, chronic, left Acute R10.32, G89.29 Chronic pain Chronic G89.29 Elevated PSA Acute R97.20 Bilateral kidney stones Acute N20.0 Medical History Medical History Prediabetes Nodule of left lung Nicotine dependence Hyperlipidemia Abdominal pain Hypertension Kidney stones Surgical History Surgical History Hx of umbilical hernia repair History of cystoscopy History of colonoscopy Ureteroscopy, stone extraction (11/09/15) Repair of inguinal hernia pt. reports it was umbilical Excision, Skin Mass R arm Tobacco Smoking/Tobacco Use Status: Current every day Tobacco Type: smokeless tobacco Alcohol Alcohol Intake: current Alcohol intake frequency: 0-2 drinks per day Alcohol type: hard liquor Substance Use Substance use: Never Substance use type: does not use Details: alcohol: t-1, 2 drinks Vital Signs and Lab Results Vital Signs Most Recent Vital Signs in EMR: Most Recent Vital Signs Temp Pulse Resp BP Pulse Ox 36.6 C 70 16 115/81 98 01/28/24 06:25 01/28/24 06:25 01/28/24 06:25 01/28/24 06:25 01/28/24 06:25 Lab Results Blood Type / Crossmatch: No Data to Display Complete Blood Count: No Data to Display Complete Metabolic Panel: No Data to Display Liver Function Panel: No Data to Display Coagulation Panel: No Data to Display Cardiac Panel: No Data to Display Arterial Blood Gas: No Data to Display Venous Blood Gas: No Data to Display Pancreas Panel: No Data to Display Thyroid Panel: No Data to Display Infectious Disease: No Data to Display Blood Cultures: No Data to Display Toxicology Panel: No Data to Display Anesthesia Assessment and Plan Anesthesia History Personal History: No History of Anesthesia Complications Family History: No Family History of Anesthesia Complications Exercise Tolerance Exercise Tolerance: Metabolic Equivalents>4 Pertinent Negatives Pertinent Negatives: No Symptoms of GERD Cardiac & Pulmonary Exam Cardiac Exam: Normal S1/S2 Heart Sounds Pulmonary Exam: Clear Bilateral Breath Sounds Implantable Cardiac Device Does patient have a Pacemaker or an ICD?: No Airway Exam Known Difficult Airway: No Mallampati Class: 2 Mouth Opening: Normal (> 3cm) Thyromental Distance: Less than 3 cm Neck Range of Motion: Full ROM Neck Circumference: Thick Teeth Condition: Normal Dentition and Other (Chipped teeth, 11 & 21) ASA Classification ASA Score: ASA 3 Emergency Case?: No NPO Status NPO Status: NPO Clears >2 hours, Solids >8 hours Anesthesia Plan Resuscitation Status: Full Code Anesthesia Technique: General Anesthesia Airway Planned: Endotracheal Tube Monitors Used: Standard Monitors
--- NOTE | 2024-01-28 07:30 | W.PM.DSUDISC ---
Date of service: 01/28/24 Time of Service: 10:18 Discharge Plan Disposition Patient Disposition: Home Condition: Good Discharge Details Reason For Visit: Redo left inguinal hernia repair with neurectomy Attending Provider: Jp Hu Primary Care Provider: Martínez Arce Home Meds and New Rx's Prescriptions: New tramadol 50 mg tablet 50 mg PO Q8H PRNQty: 15 0RF Rx Instructions: Take 1 tablet by mouth up to every 8 hours if needed for severe pain. Do not drive while using this medication. Tablets can be broken in half for smaller doses if needed. amitriptyline 25 mg tablet 25 mg PO QHS Qty: 30 0RF Rx Instructions: Take 1 tablet by mouth every night. Continued omeprazole 20 mg capsule,delayed release(DR/EC) 20 mg PO DAILY lisinopril 40 mg tablet 40 mg PO DAILY gabapentin 100 mg capsule 100 mg PO DAILY atorvastatin 20 mg tablet 20 mg PO DAILY sodium bicarbonate 650 mg tablet 650 mg PO BID Qty: 180 3RF tamsulosin 0.4 mg capsule 0.4 mg PO DAILY Discharge Instructions Additional Instructions: Hugo, we were able to perform her surgery today as we discussed before hand. I did find, and completely remove the more superficial mesh that was used during your first surgery. As I mentioned, there is also a mesh plug that was used previously, but this is quite deep, and appears well incorporated below any area of nerves that may contribute to the pain that you have been experiencing. Therefore, I left the deeper mesh in place as I do think it is doing a good job preventing hernia recurrence, and is unlikely any source of the problem here. I believe that I was able to identify and divide the ilioinguinal nerve. Although I will admit that the surgical field was quite scarred in from your previous operation, and identifying normal structures was extremely difficult. However, I am optimistic that this will provide some relief from the pain that you have been experiencing. I did use another new piece of mesh, taking great care to keep it away from any of the areas that would be problematic moving forward. During the recovery, I do not want to lifting anything more than 5 pounds. I provided prescriptions for 2 new medications. Both are targeting chronic pain in the groin region. The first medication is tramadol, and this should be used with caution as it is an opioid medication, and can be addictive. This tends to be most beneficial for the first day or 2, but I would not expect it to provide long-term chronic pain relief. The other medication can be taking over longer courses if needed. I will be seeing you in the office on February 16, and I look forward to seeing how you are doing at that point. Obviously, if you have any issues in the meantime, please do not hesitate to call. 1. Resume all of your medications. 2. Alternate heating pads and ice packs over the incision as needed for discomfort. 3. Alternate [id number] Tylenol and ibuprofen every 6 hours for the first 2 days, then use as needed. Use the prescription for tramadol if needed for more severe pain. Begin the prescription for amitriptyline on January 28, taking 1 pill every night. We will wean this down, or discontinue it over the next few weeks if you are feeling well. 4. Leave bandage in place for 24 hours, then remove. 5. Shower with warm soapy water. Pat dry. Use a bandaid if needed to protect your clothing. 6. No soaking or tub baths until I see you in the office. 7. No heavy lifting until I see you in the office. 8. Call the office (or go directly to the emergency room after hours) if you notice any of the following: Develop chills (warm to touch), or if you have a thermometer and your temperature is above 101 Difficulty breathing or difficultly swallowing Persistent vomiting Any bleeding ? exceeding one tablespoon 9. Call your physician if the site where your intravenous was started becomes red, swollen, painful, and warm to touch. Stand Alone Forms: Anesthesia Discharge Inst., Anes.Nerve Block Instructions, Lucho Phelps (DSU) Referrals: Jp Hu MD [ [facility] STAFF PHYSICIAN] - 02/17/24 8:00 am Activity:: No lifting more than 5 pounds Remove Dressings/Wound Care:: 24 hours Shower/Bathe:: 24 hours Diet:: As Tolerated Discharge Orders Discharge Orders: Discharge Order (Routine); Ordered 01/27/24 Ordered By: Jp Hu DS: Diagnosis Discharge Diagnosis (1) Groin pain, chronic, left: Status: Acute Asessment and Plan: Status post left inguinal neurectomy with excision of previous hernia mesh and redo herniorrhaphy; outpatient office follow-up
[2024-01-28] MEDS: ceFAZolin 2 GM/50 ML BAG IVPB (07:55)
[2024-01-28] MEDS: Bupivacaine LIPOSOME/PF 133 MG/10 ML VIAL IJ (08:08)
[2024-01-28] MEDS: Bupivacaine 0.5% Pres-Free 10 ML VIAL (08:08)
--- NOTE | 2024-01-28 08:44 | W.ANESNERVE ---
Nerve Block Single Injection Procedure Date and Time Date Performed: 01/28/24 Procedure Start: 07:56 Location Where Procedure Performed Procedure Location: Operating Room ( 1) Procedure Stop: 08:03 Reason Performed: Postoperative Analgesia Requesting Provider: Jp Hu Timeout Performed Timeout Performed: Yes Monitoring Used ECG, Blood Pressure, SpO2, ETCO2 and See EMR for corresponding vital signs Sterility Sterility: Hand Hygiene, Surgical Cap, Surgical Mask, Sterile Gloves, Eye Protection and Chlorhexidine Sedation Given During Procedure Sedation Given (Indicate Dose Given): No Sedation given Patient Mental Status Patient Mental Status: Performed under general anesthesia Nerve Block 1st Nerve Block: Laterality: Left Block Type: TAP Unilateral (Ilioinguinal) Ultrasound Image Saved?: Yes Needle / Catheter Used: 100mm SonoPlex II Local Anesthetic Bolus (Indicate Dose Given): None, Bupivacaine 0.5% Dose:: 0.5%/10cc (50mg) and Exparel Dose:: 1.3%/10cc (133mg) Additives (Indicate Dose Given): Epinephrine to make 1:200,000 (5mcg/ml) Dose:: 100mcg Ultrasound: Sterile probe cover and gel used Nerve Stimulator: Not Used Paresthesia: None Procedure Tolerated: No Complications and Patient tolerated well Procedure Outcome: Successful Performed By: Ammon Urbina
--- NOTE | 2024-01-28 09:33 | HERN_PTH ---
PATIENT: Hugo Ordoñez LOC: [facility] U#:[id number] AGE/SX: 58/M ROOM: RE01/28/[address]: Jp Hu MD : 1965 BED: DIS: 01/28/2024 SPEC #: [id number] RECD: 01/28/24 13:05 STATUS: REZA RE #: [id number] ANAI: 01/28/24 09:[address]: Jp Hu DEPT: Surgical Specimen RECD BY: Jeannine Purcell ENTERED: 01/28/24 13:06 SP TYPE: Hernia Sac OTHR DR: Martínez Arce Tissues: 1 - HERNIA SAC, INGUINAL 2 - NERVE BIOPSY Procedures: GROSS AND MICRO LEVEL 4 GROSS LEVEL 1 Comments: [id number]
[2024-01-28] MEDS: Bupivacaine 0.25% Pres-Free W/EPI 30 ML VIAL (10:11)
[2024-01-28] MEDS: HYDROmorphone 2 MG/ML SYR IVP ×2 (11:09→11:22)
[2024-01-28] MEDS: Normal Saline 10 ML VIAL IJ (11:09)
--- NOTE | 2024-01-28 12:07 | W.ANESPOSTOP ---
Postoperative Evaluation Date, Time and Location Date Performed: 01/28/24 Time Performed: 12:07 Patient Location: Day Surgery Unit Vital Signs Most Recent Imported Vital Signs: Most Recent Vital Signs Temp Pulse Resp BP Pulse Ox 36.6 C 55 L 15 122/68 98 01/28/24 11:31 01/28/24 11:26 01/28/24 11:26 01/28/24 11:26 01/28/24 11:26 Pain Score Most Recent Pain Score: Most Recent Pain Score Pain Level 2 01/28/24 11:31 Assessment Mental Status: Awake (Alert & Oriented to Patient Baseline) Airway and Respiratory Function: Patent airway with normal (patient baseline) respiratory exam Cardiovascular Function: Hemodynamically Stable Hydration Status: Adequately Hydrated Nausea & Vomiting: No Nausea or Vomiting Pain: Pt. Denies Any Pain Peripheral Nerve Block: Patient did not receive a nerve block
== END 2024-01-28 12:52 | disposition home or self-care (01) ==
PROVIDERS: PCP Physician Assistant; Visit Provider Surgery
PROC: (CPT 49520; principal; 2024-01-28 07:30)
DX: G89.28 Other chronic postprocedural pain (principal); R10.32 Left lower quadrant pain; M62.89 Other specified disorders of muscle
CPT/HCPCS: 49520; 64787; 64774; 76942; 88300; 88305; C1781; C9290; J0131; J0171; J0665; J0690; J1100; J1170; J1885; J2001; J2371; J2405; J2704; J3010

== ENCOUNTER 2024-06-25 11:10 | Outpatient (REF) | payer BC, SELFPAY ==
--- NOTE | 2024-06-25 11:20 | PROST_PTH ---
PATIENT: Hugo Ordoñez LOC: [facility] U#:[id number] AGE/SX: 59/M ROOM: RE06/25/[address]: Gwyn Dykes MD : 1965 BED: DIS: 06/25/2024 SPEC #: [id number] RECD: 06/25/24 12:51 STATUS: REZA REQ #: [id number] ANAI: 06/25/24 11:[address]: Gwyn Dykes DEPT: Surgical Specimen RECD BY: Jeannine Purcell ENTERED: 06/25/24 12:52 SP TYPE: PROST OTHR DR: Martínez Arce Tissues: 1 - PROSTATE NEEDLE BIOPSY 2 - PROSTATE NEEDLE BIOPSY 3 - PROSTATE NEEDLE BIOPSY 4 - PROSTATE NEEDLE BIOPSY 5 - PROSTATE NEEDLE BIOPSY 6 - PROSTATE NEEDLE BIOPSY 7 - PROSTATE NEEDLE BIOPSY 8 - PROSTATE NEEDLE BIOPSY 9 - PROSTATE NEEDLE BIOPSY 10 - PROSTATE NEEDLE BIOPSY 11 - PROSTATE NEEDLE BIOPSY 12 - PROSTATE NEEDLE BIOPSY Procedures: GROSS AND MICRO LEVEL 4 Comments: [id number]
== END 2024-06-25 11:11 | disposition home or self-care (01) ==
LOC: LBN 11:10
PROVIDERS: PCP Physician Assistant; Visit Provider Urology
DX: R97.20 Elevated prostate specific antigen [PSA] (principal)
CPT/HCPCS: 88305

== ENCOUNTER 2025-01-27 05:58 | Day surgery (SDC) | payer BC, SELFPAY ==
[2025-01-27] VITALS (12 sets, daily range): BP systolic 156–167; BP diastolic 97–122; PULSE 67–89; RESP 15–22; TEMP 36.3–36.5; O2SAT 96–99; BMI 43.2
[2025-01-27] MEDS: Lactated Ringers 1,000 ML 80 ML IV (06:50)
--- NOTE | 2025-01-27 06:56 | W.PM.HP.N ---
Date of service: 01/27/25 Time of Service: 06:57 Assessment and Plan Assessment and plan (1) Kidney stones: Assessment and plan: We are planning on cystoscopy, left retrograde pyelogram, left flexible ureteroscopy and likely holmium laser lithotripsy of his 6 mm kidney stone. He does have a stone on the right side, but it is quite small and should not need to be treated. The right sided stone is not symptomatic at this time. History of Present Illness History of Present Illness Chief Complaint: Left kidney stone Narrative: This is a 59-year-old gentleman who has a history of uric acid kidney stones. He currently is experiencing left flank pain intermittently. He is not having any nausea, vomiting, fever or chills. On ultrasound, he was identified as having a nonobstructing 6 mm stone in the left kidney. Since he is symptomatic, he has elected to move ahead with and holmium laser lithotripsy of his stone. ureteroscopy Review of Systems Narrative: No fevers or chills No vision change or dysphasia No diabetes or thyroid dysfunction No shortness of breath, cough or hemoptysis No chest pain or palpitations No nausea, vomiting, hepatitis, ulcers, jaundice No seizures, strokes or peripheral neuropathy No bleeding disorders or anemia No gout PFSH All Active Problems Groin pain, chronic, left (Acute) Chronic pain (Chronic) Elevated PSA (Acute) Bilateral kidney stones (Acute) Medical History Prediabetes Nodule of left lung Nicotine dependence Hyperlipidemia Abdominal pain Hypertension Kidney stones Surgical History Hx of umbilical hernia repair History of cystoscopy History of colonoscopy Ureteroscopy, stone extraction (11/09/15) Repair of inguinal hernia (~12/2023) Re do LIH, Triple Neurectomy Excision, Skin Mass R arm Family History Father Diabetes Disorder of kidney Heart disease Mother Crohn's disease Dementia Brother Diabetes Hypertension Social History Smoking/Tobacco Use Status: Current every day Tobacco Type: smokeless tobacco Smoking risk assessment performed?: Yes Alcohol Intake: current Alcohol Intake frequency: 0-2 drinks per day Alcohol type: hard liquor Drug use: Never Substance use type: does not use Details: alcohol:t-1, couple drinks Housing: house Do you feel safe at home: Yes Do you feel safe in your relationship?: Yes Meds Allergies and Home Medications Allergies Allergy/AdvReac Type Severity Reaction Status Date / Time No Known Allergies Allergy Verified 01/27/25 06:31 Home Medications ?Medication ?Instructions ?Recorded ?Confirmed ?Type lisinopril 40 mg tablet 40 mg PO DAILY 12/17/21 01/27/25 History atorvastatin 20 mg tablet 20 mg PO DAILY 12/17/22 01/27/25 History tamsulosin 0.4 mg capsule 0.4 mg PO DAILY 12/02/23 01/27/25 History sodium bicarbonate 650 mg tablet 650 mg PO BID #180 tabs 06/01/24 01/27/25 Rx Exam Const General: cooperative Neck Neck: normal visual inspection and supple Resp Effort & Inspection: normal respiratory effort Auscultation: clear to auscultation bilaterally Cardio Rate: regular rate Rhythm: regular rhythm GI Inspection: obesity Palpation: soft and no masses Neuro General: patient alert, patient awake and patient oriented x3 Results Last Vital Signs Temp 36.5 C 01/27/25 06:29 Pulse 72 01/27/25 06:29 Resp 18 01/27/25 06:29 BP 165/122 H 01/27/25 06:29 Pulse Ox 97 01/27/25 06:29 Time Spent Time spent with Patient: <40 minutes Time was spent: other
--- NOTE | 2025-01-27 06:57 | ANES.PREOP_ITS ---
General Info Date of Service Date Performed: 01/27/25 Height: 5 ft 6 in Weight: 121.5 kg Body Mass Index (BMI): 43.2 Surgical Procedure: Operation Date: 01/27/25 07:40 Proposed Procedure Side Surgeon p Cystoscopy/Laser/Retrograde/Ureteroscopy Left Gwyn Dykes MD Meds Allergies and Home Medications Allergies Allergy/AdvReac Type Severity Reaction Status Date / Time No Known Allergies Allergy Verified 01/27/25 06:31 Home Medication ?Medication ?Instructions ?Recorded lisinopril 40 mg tablet 40 mg PO DAILY 12/17/21 atorvastatin 20 mg tablet 20 mg PO DAILY 12/17/22 tamsulosin 0.4 mg capsule 0.4 mg PO DAILY 12/02/23 sodium bicarbonate 650 mg tablet 650 mg PO BID #180 ta bs 06/01/24 Current Visit Medications: Current Medications Generic Name Dose Route Start Last Admin Trade Name Freq PRN Reason Stop Dose Admin Ringer's Solution 1,000 mls @ 80 mls/hr 01/27/25 06:00 01/27/25 06:50 IV 01/27/25 23:59 80 mls/hr INFUSION FREEDOM Administration Cefazolin Sodium 3,000 mg/ 100 mls @ 200 mls/hr 01/27/25 06:00 Sodium Chloride IV 01/27/25 23:59 PREOP FREEDOM IV Miscellaneous Supplies 1 each 01/27/25 06:00 Iv Access IV 01/27/25 23:59 DIRECTED FREEDOM Sodium Chloride 0 ml 01/27/25 06:00 Normal Saline Flush 10 Ml Syr IV 01/27/25 23:59 PRN PRN Sodium Chloride 0 ml 01/27/25 06:00 Normal Saline 10 Ml Vial IJ 01/27/25 23:59 DIRECTED PRN Sterile Water 0 ml 01/27/25 06:00 Water,Injection,Sterile 10 Ml Vial IJ 01/27/25 23:59 DIRECTED PRN PFSH Active Problems Active Problems: Problem Status Onset Code Groin pain, chronic, left Acute R10.32, G89.29 Chronic pain Chronic G89.29 Elevated PSA Acute R97.20 Bilateral kidney stones Acute N20.0 Medical History Medical History Prediabetes Nodule of left lung Nicotine dependence Hyperlipidemia Abdominal pain Hypertension Kidney stones Surgical History Surgical History Hx of umbilical hernia repair History of cystoscopy History of colonoscopy Ureteroscopy, stone extraction (11/09/15) Repair of inguinal hernia (~12/2023) Re do LIH, Triple Neurectomy Excision, Skin Mass R arm Tobacco Smoking/Tobacco Use Status: Current every day Tobacco Type: smokeless tobacco Alcohol Alcohol Intake: current Alcohol intake frequency: 0-2 drinks per day Alcohol type: hard liquor Substance Use Substance use: Never Substance use type: does not use Details: alcohol:t-1, couple drinks Vital Signs and Lab Results Vital Signs Most Recent Vital Signs in EMR: Most Recent Vital Signs Temp Pulse Resp BP Pulse Ox 36.5 C 72 18 165/122 H 97 01/27/25 06:29 01/27/25 06:29 01/27/25 06:29 01/27/25 06:29 01/27/25 06:29 Anesthesia Assessment and Plan Anesthesia History Personal History: No History of Anesthesia Complications Family History: No Family History of Anesthesia Complications Exercise Tolerance Exercise Tolerance: Metabolic Equivalents>4 Pertinent Negatives Pertinent Negatives: No Symptoms of GERD, No Major Cardiovascular Symptoms or Complaints and No Major Pulmonary Symptoms or Complaints Cardiac & Pulmonary Exam Cardiac Exam: Normal S1/S2 Heart Sounds Pulmonary Exam: Clear Bilateral Breath Sounds Implantable Cardiac Device Does patient have a Pacemaker or an ICD?: No Airway Exam Known Difficult Airway: No Mallampati Class: 3 Mouth Opening: Normal (> 3cm) Thyromental Distance: Less than 3 cm Facial Hair: Full [place] Neck Range of Motion: Full ROM Neck Circumference: Thick Teeth Condition: Normal Dentition (front teeth caps) and Other (Chipped teeth, 11 & 21) ASA Classification ASA Score: ASA 3 Emergency Case?: No NPO Status NPO Status: NPO Clears >2 hours, Solids >8 hours Anesthesia Plan Resuscitation Status: Full Code Anesthesia Technique: General Anesthesia Airway Planned: Endotracheal Tube Monitors Used: Standard Monitors
[2025-01-27] MEDS: ceFAZolin 3,000 MG in Normal Saline 100 ML 200 MG IV (07:27)
[2025-01-27] MEDS: Lidocaine 2% Jelly 11 ML SYR (07:52)
[2025-01-27] MEDS: Omnipaque 300 MG/ML 50 ML BTL (08:04)
--- NOTE | 2025-01-27 08:04 | DI.RAD_ITS ---
Exam(s) XR RETROGRADE IN OR EXAM: XR RETROGRADE IN OR CLINICAL HISTORY: Bilateral kidney stones. TECHNIQUE: 2D digital imaging was performed. COMPARISON: No exams were available for comparison FINDINGS: Fluoroscopy was provided during retrograde urologic procedure. Radiologist was not present during this procedure See procedure report for details. IMPRESSION: Radiation exposure index/cumulative dose:Dinorar=15.867mGy DATA REPOSITORY: RADIATION DOSE DELIVERED:
--- NOTE | 2025-01-27 08:11 | PDOC.DSDIS_ITS ---
Date of service: 01/27/25 Discharge Plan Disposition Patient Disposition: Home Condition: Stable Discharge Details Reason For Visit: ureteroscopy Attending Provider: Gwyn Dykes Primary Care Provider: Martínez Arce Recommendations for Follow Up Recommended tests to be ordered by follow up provider: renal us 8 weeks Home Meds and New Rx's Prescriptions: No Action lisinopril 40 mg tablet 40 mg PO DAILY atorvastatin 20 mg tablet 20 mg PO DAILY tamsulosin 0.4 mg capsule 0.4 mg PO DAILY sodium bicarbonate 650 mg tablet 650 mg PO BID Qty: 180 3RF Discharge Instructions Additional Instructions: No need to strain urine followup to remove ureteral stent 5 to 7 days followup appt 8 weeks after renal US Activity:: Activity as Tolerated Shower/Bathe:: 24 hours Diet:: As Tolerated Discharge Orders Discharge Orders: Discharge Order (Routine); Ordered 01/27/25 Ordered By: Gwyn Dykes Other Ambulatory Orders: US renal (Routine) Timeframe: 8 Weeks Facility: [facility] - Location: DIAGNOSTIC IMAGING Ordered By: Gwyn Dykes DS: Diagnosis Discharge Diagnosis (1) Kidney stones:
--- NOTE | 2025-01-27 08:18 | W.PM.OP ---
Operative Note Operative Note PRE-OP DIAGNOSIS: Left kidney stone POST-OP DIAGNOSIS: same PROCEDURE: cystoscopy, left retrograde pyelogram, left flexible ureteroscopy, insert left ureteral stent SURGEON: Gwyn Dykes ANESTHESIA TYPE: Local By Surgeon and General LMA/ETT Refer to Anesthesia Record ESTIMATED BLOOD LOSS: 5 PATHOLOGY: none sent COMPLICATIONS: None Patient was transported to: PACU Patient's condition: stable Implants: 4.8 Mexican by 22 to 30 cm left ureteral stent Indications: This is a 59-year-old gentleman who has a past history of uric acid kidney stones. We have been attempting to alkalinize his urine with sodium bicarbonate. He has been having some left-sided back discomfort. On renal ultrasound, a 6 mm stone was seen in the midpole calyx on the left. The patient is concerned that he may develop a renal colic if the stone decides to move. He presents for ureteroscopy. Findings: no visible stone within lumen of collecting system Procedure Description: The patient was given antibiotics and brought to the operating room on 01/27/2025. After successful induction of general anesthesia, he was placed in the dorsal lithotomy position. His genitalia was prepped and draped. 2% Xylocaine jelly was instilled into the urethra. A 22 Mexican rigid cystoscope was passed through the urethra into the bladder. The urethra and bladder were inspected with the 30 degree lens. The pendulous, bulbar and membranous urethra appeared normal with no strictures. The prostatic urethra showed mild lateral lobe enlargement but no significant median lobe. The bladder neck was entered and the bladder mucosa was inspected. Both ureteral orifices appeared normal with no blood coming from either side. The left orifice was cannulated with a 5 Mexican access catheter. A retrograde pyelogram was obtained by injecting Omnipaque through the access catheter under fluoroscopic guidance. This allowed us to outline the renal calyces. A Glidewire was then advanced through the lumen of the access catheter and the wire was advanced until the proximal and was curled in the renal pelvis. The access catheter was removed and was replaced with a dual-lumen catheter. A second wire was then positioned and the dual-lumen catheter was removed. We chose one of the wires as a working wire and the other as a safety wire. A ureteral access sheath was advanced over the working wire leaving the safety wire in place. A flexible ureteroscope was then passed through the lumen of the access sheath and the ureteroscope was advanced to the renal pelvis. Each of the outlined calyces was inspected and no stone particles were seen within the lumen of the calyces or renal pelvis. The scope and access sheath were withdrawn and the ureter was inspected. No stone debris was seen within the ureter or within the bladder. The scope was then removed. We elected to place a 4.8 Mexican variable length stent over the safety wire. The stent was advanced until the proximal end was curled in the renal pelvis and the distal end was curled within the bladder. The safety string was left in place and brought through the urethral meatus. The safety string was anchored to the dorsum of the penis using Steri-Strips. The patient tolerated this procedure well with no complications. Date of Procedure: 01/27/25
[2025-01-27] MEDS: Phenazopyridine 200 MG TAB PO (09:00)
--- NOTE | 2025-01-27 11:28 | W.ANESPOSTOP ---
Postoperative Evaluation Date, Time and Location Date Performed: 01/27/25 Time Performed: 11:28 Patient Location: Day Surgery Unit Vital Signs Most Recent Imported Vital Signs: Most Recent Vital Signs Temp Pulse Resp BP Pulse Ox 36.3 C L 67 18 162/100 H 98 01/27/25 09:17 01/27/25 09:17 01/27/25 09:17 01/27/25 09:17 01/27/25 09:17 Pain Score Most Recent Pain Score: Most Recent Pain Score Pain Level 3 01/27/25 09:17 Assessment Mental Status: Awake (Alert & Oriented to Patient Baseline) Airway and Respiratory Function: Patent airway with normal (patient baseline) respiratory exam Cardiovascular Function: Hemodynamically Stable Hydration Status: Adequately Hydrated Nausea & Vomiting: No Nausea or Vomiting Pain: Pain is tolerable per patient Peripheral Nerve Block: Patient did not receive a nerve block Postoperative Comments:: Seen earlier today and doing well.
== END 2025-01-27 10:06 | disposition home or self-care (01) ==
PROVIDERS: PCP Physician Assistant; Visit Provider Urology
PROC: (CPT 52332; principal; 2025-01-27 07:30)
DX: N20.0 Calculus of kidney (principal); R73.03 Prediabetes; E78.5 Hyperlipidemia, unspecified; I10 Essential (primary) hypertension; F17.210 Nicotine dependence, cigarettes, uncomplicated
CPT/HCPCS: 52332; 74420; J0690; J1885; J2003; J2405; J2704; Q9967